=== PATIENT | male | born 1990 | race Caucasian/White ===

== ENCOUNTER 2018-09-21 08:29 | Emergency (ER) | payer SELFPAY ==
[~2018-09-21] VITALS: Ht 177.8 cm; Wt 89.8 kg
[2018-09-21 08:34] VITALS: BP 134/76
[2018-09-21] MEDS ORDERED: DEXAMETHASONE 10 MG/ML VIAL IM ONE (08:55)
[2018-09-21] MEDS ORDERED: cefTRIAXone 1,000 MG in LIDOCAINE 1% ***ER ONLY *** 2.1 ML IM ONE (08:55)
[2018-09-21] MEDS ORDERED: cefTRIAXone 1,000 MG VIAL ONE (09:05)
[2018-09-21] MEDS ORDERED: LIDOCAINE MPF 1% - 5 mL VIAL 5 ML ONE (09:06)
[2018-09-21 10:19] VITALS: BP 140/88
== END 2018-09-21 10:19 | disposition home or self-care (01) ==
LOC: MED 08:29
DX: K11.20 Sialoadenitis, unspecified (principal)
CPT/HCPCS: 96372; 99283; J0696; J1100; J2001

== ENCOUNTER 2021-10-19 16:32 | Emergency (ER) | payer MEDICAID, OTHER ==
[~2021-10-19] VITALS: Ht 172.7 cm; Wt 121.6 kg
[2021-10-19 17:51] VITALS: BP 164/103
--- NOTE | 2021-10-19 21:20 | NUR ---
SEEN AND EXAMINED BY NAHUN
[2021-10-19] MEDS ORDERED: LID5T TP (23:15)
[2021-10-19] MEDS ORDERED: CYCL-711 PO (23:16)
[2021-10-19] MEDS ORDERED: IBUP-2213 PO (23:16)
[2021-10-20 00:30] VITALS: BP 145/89
--- NOTE | 2021-10-20 00:30 | NUR ---
Patient discharged with v/s stable. Written and verbal after care instructions given and explained. Patient alert, oriented and verbalized understanding of instructions. Ambulatory with steady gait. All questions addressed prior to discharge. ID band removed. Patient advised to follow up with PMD. Rx of FLEXERIL,IBUPROFEN given. Patient educated on indication of medication including possible reaction and side effects. Opportunity to ask questions provided and answered.
== END 2021-10-20 00:30 | disposition home or self-care (01) ==
LOC: MED 16:32
DX: S39.012A Strain of muscle, fascia and tendon of lower back, initial encounter (principal); Z79.899 Other long term (current) drug therapy; Z98.890 Other specified postprocedural states; X58.XXXA Exposure to other specified factors, initial encounter; Y93.01 Activity, walking, marching and hiking; Y92.39 Other specified sports and athletic area as the place of occurrence of the external cause; Y99.8 Other external cause status
CPT/HCPCS: 72110; 99283

== ENCOUNTER 2023-08-06 14:07 | Emergency (ER) | payer OTHER ==
[~2023-08-06] VITALS: Ht 175.3 cm; Wt 99.8 kg
[~2023-08-06 14:07] MED LIST: CYCL-711 PO; IBUP-2213 PO; LID5T TP
[2023-08-06 14:47] VITALS: BP 141/83; PULSE 88; RESP 20; TEMP 98.6; O2SAT 97
[2023-08-06 15:01] VITALS: BP 136/81; PULSE 74; RESP 17; TEMP 97.6; O2SAT 99
[2023-08-06] MEDS ORDERED: HYDROcodone/APAP 5/325 MG 1 TAB TAB PO ONE (15:25)
[2023-08-06] MEDS ORDERED: LIDO5TDM59 TP (16:24)
[2023-08-06] MEDS ORDERED: IBUP-2213 PO (16:35)
[2023-08-06] MEDS ORDERED: CYCL-711 PO (16:47)
[2023-08-06] MEDS ORDERED: IBUP200C97 PO (16:48)
[2023-08-06] MEDS ORDERED: LID5T TP (16:48)
== END 2023-08-06 16:52 | disposition home or self-care (01) ==
LOC: MED 14:07
DX: S20.212A Contusion of left front wall of thorax, initial encounter (principal); W18.30XA Fall on same level, unspecified, initial encounter; Y93.89 Activity, other specified; Y92.89 Other specified places as the place of occurrence of the external cause; Y99.8 Other external cause status
CPT/HCPCS: 71101; 99283